=== PATIENT | male | born 1985 | race Two or more races ===

== ENCOUNTER 2019-12-29 03:00 | Emergency (ER) | payer OTHER ==
[~2019-12-29] VITALS: Ht 182.9 cm; Wt 104.5 kg
[2019-12-29 03:03] VITALS: BP 155/115
[2019-12-29] MEDS ORDERED: OXYcodone/APAP 5/325MG TABLET ONE (03:17)
[2019-12-29] MEDS ORDERED: OXYcodone/APAP 5/325MG TABLET PO ONE (03:30)
== END 2019-12-29 04:09 | disposition home or self-care (01) ==
LOC: ED 03:43
DX: S82.454A Nondisplaced comminuted fracture of shaft of right fibula, initial encounter for closed fracture (principal); S82.254A Nondisplaced comminuted fracture of shaft of right tibia, initial encounter for closed fracture; S82.124A Nondisplaced fracture of lateral condyle of right tibia, initial encounter for closed fracture; S82.134A Nondisplaced fracture of medial condyle of right tibia, initial encounter for closed fracture; X58.XXXA Exposure to other specified factors, initial encounter; Y93.89 Activity, other specified; Y92.89 Other specified places as the place of occurrence of the external cause; Y99.8 Other external cause status
CPT/HCPCS: 99283